=== PATIENT | male | born 1965 | race Caucasian/White ===

== ENCOUNTER 2018-04-28 10:08 | Emergency (ER) | payer MEDICAID ==
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
[2018-04-28] MEDS ORDERED: AMOX500T10 PO (11:18)
[2018-04-28 11:31] VITALS: BP 148/106
== END 2018-04-28 11:31 | disposition home or self-care (01) ==
LOC: ER 10:10
DX: K04.7 Periapical abscess without sinus (principal)
CPT/HCPCS: 99281

== ENCOUNTER 2018-12-29 20:31 | Emergency (ER) | payer MEDICAID ==
[~2018-12-29 20:31] MED LIST: AMOX500T10 PO
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
[2018-12-29 21:45] LABS: PLATELET COUNT, AUTOMATED 265 K/uL (150-450)
[2018-12-29 22:00] VITALS: BP 103/88
[2018-12-29] MEDS ORDERED: OLANZapine ZYDIS ODT 5MG TABDP PO ONE (22:10)
[2018-12-29] MEDS ORDERED: LORazepam 1 MG TAB PO ONE (22:10)
[2018-12-29] MEDS ORDERED: diphenhydrAMINE 25 MG CAP PO ONE (22:10)
== END 2018-12-29 23:00 | disposition home or self-care (01) ==
LOC: ER 20:38
DX: F41.9 Anxiety disorder, unspecified (principal); F15.10 Other stimulant abuse, uncomplicated
CPT/HCPCS: 36415; 80305; 81001; 83735; 84443; 85025; 99283; G0480; Q0163; 80320; 80329; 82040; 82247; 82310; 82374; 82435; 82565; 82947; 84075; 84132; 84155; 84295; 84450; 84460; 84520

== ENCOUNTER 2019-03-11 13:54 | Emergency (ER) | payer MEDICAID ==
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
[2019-03-11] MEDS ORDERED: AMOX500T10 PO (14:27)
[2019-03-11 14:42] VITALS: BP 153/109
== END 2019-03-11 14:47 | disposition home or self-care (01) ==
LOC: ER 14:24
DX: K08.89 Other specified disorders of teeth and supporting structures (principal); K02.9 Dental caries, unspecified
CPT/HCPCS: 99281